=== PATIENT | female | born 1980 | race Caucasian/White ===

== ENCOUNTER 2018-06-08 01:54 | Emergency (ER) | payer OTHER ==
[~2018-06-08] VITALS: Ht 188 cm; Wt 124.5 kg
[2018-06-08 02:15] VITALS: BP 138/86
[2018-06-08] MEDS ORDERED: DEXAMETHASONE SOD PHOS 20 MG/5 ML VIAL. IM ONE (03:30)
[2018-06-08 03:34] LABS: INFLUENZA A PATIENT NEGATIVE (NEGATIVE); INFLUENZA B PATIENT NEGATIVE (NEGATIVE)
[2018-06-08] MEDS ORDERED: AMOX1TAB61 PO (03:39)
--- NOTE | 2018-06-08 03:42 | PHYS DOC ---
Past Medical History Past Medical History: No Pertinent History, Other Additional Past Medical Histor: strep Past Surgical History: Cholecystectomy, , Tonsillectomy Smoking: Less than 1pk/day Alcohol Use: None Social History Narrative: past hx meth heroin Adult General Chief Complaint Chief Complaint: SORE THROAT HPI HPI Patient is a 37 year old female who presents with a sore throat and bilateral ear pain. Patient states that her symptoms began around eight o'clock tonight. Patient states that her throat pain is excruciating and rates it to be 9/10. Swallowing makes the pain worse. Patient tried essential oils without relief. Patient states that she and her family are current staying at the [facility], but denies any swimming. Patient reports enlarged cervical lymph nodes which she states appear whenever she is ill. Patient states that her is sick with similar symptoms. Denies fever and chills. Review of Systems Review of Systems Constitutional: Denies fever or chills. Eyes: Denies change in visual acuity or eye pain. HENT: Reports nasal congestion and sore throat. Respiratory: Denies cough or shortness of breath. Cardiovascular: Denies chest pain or palpitations. GI: Denies abdominal pain, nausea, or vomiting. : Denies dysuria or hematuria. Musculoskeletal: Denies back pain or joint pain. Integument: Denies rash or skin lesions. Neurologic: Denies focal weakness or sensory changes Complete systems were reviewed and found to be within normal limits, except as documented in this note. Current Medications Current Medications Current Medications Medications (Trade) Dose Ordered Sig/Penny Start Time Stop Time Status Last Admin Dose Admin Dexamethasone Sodium Phosphate (Decadron) 10 mg 1X ONCE 06/08/18 03:30 06/08/18 03:31 DC Allergies Allergies Allergies Coded Allergies Type Severity Reaction Last Updated Verified No Known Drug Allergies 06/08/18 No Physical Exam Physical Exam Constitutional: Well developed, well nourished, no acute distress, non-toxic appearance. HENT: Normocephalic, atraumatic. Dullness noted to bilateral TMs. Mild pharyngeal erythema without exudate. Eyes: PERRL, EOMI, conjunctiva without erythema. Neck: Normal range of motion, no tenderness, supple. Two enlarged right sided cervical lymph nodes that are mobile. Cardiovascular:Heart rate regular rhythm, no murmur. Lungs & Thorax: Bilateral breath sounds clear to auscultation Abdomen: Soft, no tenderness. Skin: Warm, dry, no rash. Back: No tenderness, no CVA tenderness. Extremities: No tenderness, ROM intact, no edema. Neurologic: Alert and oriented X 3, no focal deficits noted Psychologic: Affect normal. Speech normal. Current Patient Data Vital Signs Vital Signs Date Time Temp Pulse Resp B/P (MAP) Pulse Ox O2 Delivery O2 Flow Rate FiO2 06/08/18 02:15 98.5 95 20 138/86 (103) 98 Room Air 98.5 Lab Values Laboratory Tests Test 06/08/18 03:00 Influenza Type A Antigen Negative (NEGATIVE) Influenza Type B Antigen Negative (NEGATIVE) EKG EKG [] Radiology/Procedures Radiology/Procedures [] Course & Med Decision Making Course & Med Decision Making Pertinent diagnostic results reviewed. (See chart for details) Patient is a 37 year old female who presents for evaluation of bilateral ear pain and sore throat. Strep throat and influenza are negative. Patient treated with a dose of Dexamethasone in the ED. Patient stable for discharge with outpatient follow-up with PCP. Discussed findings and plan with patient and family, who acknowledge understanding and agreement. Dragon Disclaimer Dragon Disclaimer This electronic medical record was generated, in whole or in part, using a voice recognition dictation system. Departure Departure Impression: Primary Impression: Pharyngitis Disposition: 01 HOME, SELF-CARE Condition: STABLE Referrals: UNKNOWN PCP NAME (PCP) Patient Instructions: Viral and Bacterial Pharyngitis, [id number] Additional Instructions: Hold antibiotics for 48 hours. If symptoms worsen or for fever > 100.3 F after 48 hours then start antibiotics as prescribed. Scripts Amoxicillin/Potassium Clav (AUGMENTIN [id number] TABLET) 1 Each Tablet 1 TAB PO BID, #14 TAB Prov: JOANNE SANCHEZ DO 06/08/18 Problem Qualifiers Primary Impression: Pharyngitis Pharyngitis/tonsillitis etiology: unspecified etiology Qualified Codes: J02.9 - Acute pharyngitis, unspecified JOANNE SANCHEZ DO Jun 08, 2018 03:42
== END 2018-06-08 03:52 | disposition home or self-care (01) ==
LOC: ER 01:54
DX: J02.9 Acute pharyngitis, unspecified (principal); H92.03 Otalgia, bilateral; R59.0 Localized enlarged lymph nodes; F17.200 Nicotine dependence, unspecified, uncomplicated; Z90.49 Acquired absence of other specified parts of digestive tract; Z98.890 Other specified postprocedural states; Z90.89 Acquired absence of other organs
CPT/HCPCS: 87070; 87804; 87880; 96372; 99283; J1100